=== PATIENT | male | born 1950 ===

== ENCOUNTER → 2021-07-30 12:51 | Outpatient (CLI) | payer OTHER, SELFPAY ==
[2021-07-30 14:28] LABS: COVID19 -Nasal RAPID POSITIVE (Negative)
== END ==
PROVIDERS: Referring Provider Nurse Practitioner Family; Visit Provider Nurse Practitioner Family
DX: Z20.822 Contact with and (suspected) exposure to COVID-19 (principal)
CPT/HCPCS: 87635